=== PATIENT | female | born 1935 | race Caucasian/White ===

== ENCOUNTER → 2023-05-24 10:30 | Outpatient (BNVA) | payer MEDICARE, SELFPAY | PROVIDERS: Visit Provider Internal Medicine Hypertension Specialist ==

== ENCOUNTER → 2023-05-24 11:16 | Outpatient (AMB) | payer MEDICARE, SELFPAY ==
--- NOTE | 2023-05-24 10:31 | HO.NEPHOV ---
HPI HPI Comments History of Present Illness Details Elderly woman with a history of CKD in a setting of renal artery stenosis and resistant hypertension. Her niece was on the phone today in to elaborate on history. Cristiana continues to feel tired. No urine symptoms. She is in a facility insult to answer. [facility] Social History (Updated 05/24/23 @ 10:33 by Dominique Ordonez MA) Household Members: None Housing: Assisted Living Facility Alcohol intake: never Patient Tobacco Use Status: Former Tobacco user Assessment & Plan Assessment & Plan (1) CKD (chronic kidney disease) stage 4, GFR 15-29 ml/min: Code(s): N18.4 - Chronic kidney disease, stage 4 (severe) (2) HTN (hypertension): Code(s): I10 - Essential (primary) hypertension (3) Anemia: Code(s): D64.9 - Anemia, unspecified Plan Elderly woman with a history of renal stenosis and chronic disease. No blood pressure readings are available. Recent creatinine is 1.9 and this is close to her baseline. 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 No indication for Epogen. I have spoken to her knees and as stated to get me the list of medications. For now she should continue to stand low-sodium diet. Avoid nephrotoxic agents including NSAIDs. Given her advanced age I would continue with supportive care. Telehealth Telehealth Location of provider rendering services: practice address Location of patient: address on file Patient Identification confirmed using: Name, : Yes Telehealth method: voice only Patient verbally consented to treatment: Yes Patient verbally consented to billing insurance company: Yes Patient informed of any privacy concerns related to visit: Yes Coding Level of Care Code Tele Est Pt Level 2 (19760) Diagnoses CKD (chronic kidney disease) stage 4, GFR 15-29 ml/min N18.4 HTN (hypertension) I10 Anemia D64.9 Results Reviewed Results Reviewed: Results from 05/23/2023 was reviewed Creatinine 1.9 Hemoglobin 10.9 Nephrology Results: No Data to Display
== END | disposition home or self-care (01) ==
LOC: HO.HKA 10:30
PROVIDERS: Visit Provider Internal Medicine Hypertension Specialist
DX: I12.9 Hypertensive chronic kidney disease with stage 1 through stage 4 chronic kidney disease, or unspecified chronic kidney disease (principal); N18.4 Chronic kidney disease, stage 4 (severe); D64.9 Anemia, unspecified
CPT/HCPCS: 99499

== ENCOUNTER 2023-10-25 11:07 | Outpatient (AMB) | payer MEDICARE, SELFPAY ==
--- NOTE | 2023-10-25 11:07 | HO.NEPHOV_ITS ---
Intake Visit Reasons: follow up/ Confirmed [employer] Required: No Accompanied by: Nephew or Niece Allergies No Known Allergies Allergy (Verified 10/25/23 11:09) [facility] Social History Household Members: None Housing: Assisted Living Facility Alcohol intake: never Patient Tobacco Use Status: Former Tobacco user Telehealth Telehealth Telehealth Platform: Telephone Location of provider rendering services: practice address Location of patient: address on file Patient Identification confirmed using: Name, : Yes Telehealth method: voice only Patient verbally consented to treatment: Yes Patient verbally consented to billing insurance company: Yes Patient informed of any privacy concerns related to visit: Yes Results Reviewed Nephrology Results: No Data to Display Assessment & Plan Assessment & Plan (1) CKD (chronic kidney disease) stage 4, GFR 15-29 ml/min: Code(s): N18.4 - Chronic kidney disease, stage 4 (severe) Category: Medical (2) HTN (hypertension): Code(s): I10 - Essential (primary) hypertension Category: Medical (3) Anemia: Code(s): D64.9 - Anemia, unspecified Category: Medical Plan Elderly woman with a history of renal stenosis and chronic disease. No blood pressure readings are available. Recent creatinine is 1.9 and this is close to her baseline. 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 No indication for Epogen. I have spoken to her niece as well. For now she should continue to stand low-sodium diet. Avoid nephrotoxic agents including NSAIDs. Given her advanced age I would continue with supportive care. Coding Level of Care Code Tele New Pt Level 2 (74475) Diagnoses CKD (chronic kidney disease) stage 4, GFR 15-29 ml/min N18.4 HTN (hypertension) I10 Anemia D64.9
== END 2023-10-25 16:47 | disposition home or self-care (01) ==
LOC: HO.HKA 11:07
PROVIDERS: Visit Provider Internal Medicine Hypertension Specialist
DX: I12.9 Hypertensive chronic kidney disease with stage 1 through stage 4 chronic kidney disease, or unspecified chronic kidney disease (principal); N18.4 Chronic kidney disease, stage 4 (severe); D63.1 Anemia in chronic kidney disease
CPT/HCPCS: 99442

== ENCOUNTER → 2023-10-25 11:07 | Outpatient (BNVA) | payer MEDICARE, SELFPAY | PROVIDERS: Visit Provider Internal Medicine Hypertension Specialist ==